=== PATIENT | female | born 1945 | race Caucasian/White ===

== ENCOUNTER → 2016-03-26 | Outpatient (CLI) | payer MEDICARE, BC ==
[~2016-03-26] MED LIST: ALENDRONATE SOD70 MG; ALEVE 220MG220 MG PO; ASPIRIN E.C. 8181 MG PO; CALCIUM 500500 M2 PO; CARDIZEM CD 12120 MG PO; ELIQUIS5 MG PO; FIBER TABLETS1 TAB PO; FOSAMAX PO; GABAPENTIN300 MG; IRON65 MG PO; LEVOTHYROXIN0.112 M1; LEVOTHYROXIN0.125 M1 PO; LEVOTHYROXINE0.1 MG PO; LORTAB 5/500 501 TAB PO; LOTRISONE15 GM TP; MULTI VITAMINS1 TAB PO; RANITIDINE150 MG; SIMVASTATIN20 MG; STOOL SOFTENER100 M1 PO; VITAMIN D3400 IU PO; ZOCOR20 MG PO
== END ==
LOC: RAD 14:20
DX: Z13.820 Encounter for screening for osteoporosis (principal); M81.0 Age-related osteoporosis without current pathological fracture

== ENCOUNTER → 2016-09-08 | Outpatient (CLI) | payer MEDICARE, BC ==
[2014-07-28 06:23] VITALS: BP 151/75
== END ==
LOC: RAD 09:26
DX: M25.569 Pain in unspecified knee (principal); M17.12 Unilateral primary osteoarthritis, left knee; M17.11 Unilateral primary osteoarthritis, right knee; M11.262 Other chondrocalcinosis, left knee; M11.261 Other chondrocalcinosis, right knee

== ENCOUNTER → 2017-01-20 | Outpatient (CLI) | payer MEDICARE, BC ==
[2014-07-28 06:23] VITALS: BP 151/75
[2017-01-20 15:09] LABS: HEMATOCRIT 44.4 % (37.0-47.0); HEMOGLOBIN 14.7 g/dL (12.5-16.0); MEAN PLATELET VOLUME 10.9 fl (7.4-10.4); RED BLOOD COUNT 4.75 M/mm3 (4.10-5.30); RED CELL DISTRIBUTION WIDTH 13.3 % (11.5-14.5); WHITE BLOOD COUNT 9.1 K/mm3 (4.8-10.8)
[2017-01-20 15:22] LABS: ALBUMIN 4.1 g/dL (3.5-5.0); BUN/CREATININE RATIO 14.3 (6.0-26.0); CALCIUM 10.3 mg/dL (8.4-10.2); POTASSIUM 4.5 mmol/L (3.6-5.0); TOTAL BILIRUBIN 0.5 mg/dL (0.2-1.3); TOTAL PROTEIN 7.4 g/dL (6.3-8.2)
== END ==
LOC: LAB 14:44
PROVIDERS: Family Medicine
DX: I48.2 Chronic atrial fibrillation (principal); E78.2 Mixed hyperlipidemia; E03.4 Atrophy of thyroid (acquired)

== ENCOUNTER → 2017-02-03 | Outpatient (CLI) | payer MEDICARE, BC ==
[2014-07-28 06:23] VITALS: BP 151/75
== END ==
LOC: MAMMO 09:46
DX: Z12.31 Encounter for screening mammogram for malignant neoplasm of breast (principal)
CPT/HCPCS: G0202

== ENCOUNTER → 2017-07-04 | Outpatient (CLI) | payer MEDICARE, BC ==
[~2017-07-04] VITALS: Ht 160 cm; Wt 104.1 kg
[2017-07-04 12:40] VITALS: BP 169/77
[2017-07-04 13:06] LABS: EOS # 0.2 (0.04-0.40); EOS % 2.7 % (1.0-5.0); HEMATOCRIT 44.4 % (37.0-47.0); HEMOGLOBIN 14.6 g/dL (12.5-16.0); MEAN CELL VOLUME 93 fl (78-100); MEAN CORPUSCULAR HEMOGLOBIN 31 pg (27-31); MEAN CORPUSCULAR HGB CONC 33 g/dL (33-37); MEAN PLATELET VOLUME 10.9 fl (7.4-10.4); MONO # 0.8 (0.20-0.80); PLATELET COUNT 248 K/mm3 (130-400); RED BLOOD COUNT 4.76 M/mm3 (4.10-5.30); RED CELL DISTRIBUTION WIDTH 13.7 % (11.5-14.5)
[2017-07-04 13:12] LABS: BUN/CREATININE RATIO 14.3 (6.0-26.0); CALCIUM 9.8 mg/dL (8.4-10.2); POTASSIUM 4.3 mmol/L (3.6-5.0)
[2017-07-04 13:46] VITALS: BP 171/93
[2017-07-04 13:49] LABS: URINE APPEARANCE CLEAR; URINE BILIRUBIN NEGATIVE (NEGATIVE); URINE BLOOD NEGATIVE (NEGATIVE); URINE COLOR STRAW; URINE GLUCOSE NEGATIVE (NEGATIVE); URINE KETONE NEGATIVE (NEGATIVE); URINE LEUKOCYTE ESTERASE TRACE (NEGATIVE); URINE NITRATE NEGATIVE (NEGATIVE); URINE PROTEIN(semi-quant) NEGATIVE (NEGATIVE); URINE UROBILINOGEN NORMAL (NORMAL)
== END ==
LOC: AMSURD 11:20
PROVIDERS: Family Medicine
DX: I95.1 Orthostatic hypotension (principal); R42 Dizziness and giddiness
CPT/HCPCS: J7030

== ENCOUNTER → 2018-02-01 | Outpatient (CLI) | payer MEDICARE, BC ==
[2017-07-04 13:46] VITALS: BP 171/93
== END ==
LOC: RAD 13:58
DX: R05 Cough (principal)

== ENCOUNTER → 2018-02-09 | Outpatient (CLI) | payer MEDICARE, BC ==
[2017-07-04 13:46] VITALS: BP 171/93
== END ==
LOC: MAMMO 08:37
DX: Z12.31 Encounter for screening mammogram for malignant neoplasm of breast (principal)

== ENCOUNTER → 2018-02-09 | Outpatient (CLI) | payer MEDICARE, BC ==
[2017-07-04 13:46] VITALS: BP 171/93
[2018-02-09 09:22] LABS: EOS # 0.3 (0.04-0.40); EOS % 2.9 % (1.0-5.0); HEMATOCRIT 49.3 % (37.0-47.0); HEMOGLOBIN 16.1 g/dL (12.5-16.0); LYMPH# 1.5 (1.50-4.00); MEAN CELL VOLUME 93 fl (78-100); MEAN CORPUSCULAR HEMOGLOBIN 31 pg (27-31); MEAN CORPUSCULAR HGB CONC 33 g/dL (33-37); MEAN PLATELET VOLUME 10.5 fl (7.4-10.4); MONO # 0.9 (0.20-0.80); NEU # 7.8 (1.40-6.50); PLATELET COUNT 347 K/mm3 (130-400); RED BLOOD COUNT 5.28 M/mm3 (4.10-5.30); RED CELL DISTRIBUTION WIDTH 13.7 % (11.5-14.5); WHITE BLOOD COUNT 10.6 K/mm3 (4.8-10.8)
[2018-02-09 09:54] LABS: ALBUMIN 4.3 g/dL (3.5-5.0); CALCIUM 9.1 mg/dL (8.4-10.2); POTASSIUM 4.6 mmol/L (3.6-5.0); TOTAL BILIRUBIN 0.5 mg/dL (0.2-1.3); TOTAL PROTEIN 7.3 g/dL (6.3-8.2)
== END ==
LOC: LAB 08:40
PROVIDERS: Family Medicine
DX: Z01.419 Encounter for gynecological examination (general) (routine) without abnormal findings (principal); E03.9 Hypothyroidism, unspecified; M81.0 Age-related osteoporosis without current pathological fracture

== ENCOUNTER → 2018-05-11 | Outpatient (CLI) | payer MEDICARE, BC ==
[2017-07-04 13:46] VITALS: BP 171/93
[2018-05-11 16:09] LABS: HEMATOCRIT 43.6 % (37.0-47.0); HEMOGLOBIN 14.2 g/dL (12.5-16.0); MEAN CELL VOLUME 91 fl (78-100); MEAN CORPUSCULAR HEMOGLOBIN 30 pg (27-31); MEAN CORPUSCULAR HGB CONC 33 g/dL (33-37); MEAN PLATELET VOLUME 10.9 fl (7.4-10.4); PLATELET COUNT 221 K/mm3 (130-400); RED BLOOD COUNT 4.77 M/mm3 (4.10-5.30); WHITE BLOOD COUNT 11.7 K/mm3 (4.8-10.8)
[2018-05-11 16:56] LABS: ALBUMIN 4.3 g/dL (3.5-5.0); POTASSIUM 3.4 mmol/L (3.6-5.0); TOTAL BILIRUBIN 0.8 mg/dL (0.2-1.3); TOTAL PROTEIN 7.3 g/dL (6.3-8.2)
[2018-05-11 17:01] LABS: LYMPHOCYTE 6 % (20-51); MONOCYTE 6 % (3-10); NEUTROPHILS 88 % (42-75)
== END ==
LOC: LAB 15:48
PROVIDERS: Family Medicine
DX: R53.83 Other fatigue (principal); R09.81 Nasal congestion; L03.90 Cellulitis, unspecified

== ENCOUNTER → 2018-05-12 | Outpatient (CLI) | payer MEDICARE, BC ==
[2017-07-04 13:46] VITALS: BP 171/93
[2018-05-13 07:55] LABS: CALCIUM, IONIZED, SERUM 2.25 mmol/L (1.19-1.41)
== END ==
LOC: LAB 08:49
PROVIDERS: Family Medicine
DX: E83.52 Hypercalcemia (principal)

== ENCOUNTER → 2018-05-13 | Outpatient (CLI) | payer MEDICARE, BC ==
[2017-07-04 13:46] VITALS: BP 171/93
== END ==
LOC: LAB 09:39
DX: E83.52 Hypercalcemia (principal)

== ENCOUNTER → 2018-05-26 | Outpatient (CLI) | payer MEDICARE, BC ==
[2017-07-04 13:46] VITALS: BP 171/93
[2018-05-26 16:35] LABS: PH-URINE 6.5 (5.0 - 8.0); URINE APPEARANCE CLEAR; URINE BILIRUBIN NEGATIVE (NEGATIVE); URINE COLOR YELLOW; URINE GLUCOSE NEGATIVE (NEGATIVE); URINE KETONE NEGATIVE (NEGATIVE); URINE NITRATE NEGATIVE (NEGATIVE); URINE PROTEIN(semi-quant) TRACE mg/dL (NEGATIVE); URINE UROBILINOGEN NORMAL (NORMAL)
[2018-05-26 16:36] LABS: URINE BLOOD TRACE (NEGATIVE); URINE LEUKOCYTE ESTERASE TRACE (NEGATIVE)
== END ==
LOC: LAB 14:10
PROVIDERS: Family Medicine
DX: N39.0 Urinary tract infection, site not specified (principal)

== ENCOUNTER 2018-07-22 09:23 | Emergency (ER) | payer MEDICARE, BC ==
[~2018-07-22] VITALS: Wt 108.5 kg
[2018-07-22] MEDS ORDERED: ZYRTEC ALLERGY10 MG PO ×2 (09:41→15:41)
[2018-07-22] MEDS ORDERED: OMEPRAZOLE40 MG PO ×2 (09:42→09:43)
[2018-07-22] MEDS ORDERED: LEVOTHYROXINE125 MCG PO (09:43)
[2018-07-22] MEDS ORDERED: DILTIAZEM 24HR120 M2 PO (09:43)
[2018-07-22] MEDS ORDERED: ELIQUIS2.5 MG PO (09:44)
[2018-07-22 10:00] LABS: HEMATOCRIT 42.1 % (37.0-47.0); HEMOGLOBIN 13.6 g/dL (12.5-16.0); MEAN CELL VOLUME 92 fl (78-100); MEAN CORPUSCULAR HEMOGLOBIN 30 pg (27-31); MEAN CORPUSCULAR HGB CONC 32 g/dL (33-37); MEAN PLATELET VOLUME 10.8 fl (7.4-10.4); PLATELET COUNT 309 K/mm3 (130-400); RED BLOOD COUNT 4.57 M/mm3 (4.10-5.30); RED CELL DISTRIBUTION WIDTH 14.9 % (11.5-14.5); WHITE BLOOD COUNT 19.1 K/mm3 (4.8-10.8)
[2018-07-22 10:18] LABS: ALBUMIN 4.1 g/dL (3.4-4.8); CALCIUM 9.9 mg/dL (8.4-10.2); POTASSIUM 4.3 mmol/L (3.5-5.1); TOTAL BILIRUBIN 0.9 mg/dL (0.2-1.2); TOTAL PROTEIN 7.6 g/dL (6.2-8.1)
[2018-07-22 10:21] LABS: LYMPHOCYTE 1 % (20-51); MONOCYTE 10 % (3-10); NEUTROPHILS 89 % (42-75)
[2018-07-22 10:26] LABS: PROTHROMBIN TIME 10.8 SECONDS (9.0-12.0)
[2018-07-22 10:58] LABS: URINE APPEARANCE HAZY; URINE COLOR YELLOW
[2018-07-22 10:59] LABS: URINE BILIRUBIN NEGATIVE (NEGATIVE); URINE BLOOD 50 ery/uL (NEGATIVE); URINE GLUCOSE NEGATIVE (NEGATIVE); URINE KETONE NEGATIVE (NEGATIVE); URINE LEUKOCYTE ESTERASE NEGATIVE (NEGATIVE); URINE MUCUS PRESENT (NOT PRESENT); URINE NITRATE NEGATIVE (NEGATIVE); URINE PROTEIN(semi-quant) 1+ mg/dL (NEGATIVE); URINE UROBILINOGEN NORMAL (NORMAL)
[2018-07-22 11:09] LABS: ERYTHROCYTE SEDIMENTATION RATE 42 mm/hr (0-30)
[2018-07-22 13:53] VITALS: BP 149/69
[2018-07-22] MEDS ORDERED: DILTIAZEM 12HR120 MG PO (15:42)
[2018-07-22] MEDS ORDERED: FOSAMAX 70MG TA70 MG PO (15:43)
[2018-07-23 22:06] LABS: ANA SCREEN with REFLEX Negative (Negative)
[2018-07-24 15:53] LABS: TB LYME DISEASE SEROLOGY Negative (Negative)
[2018-07-25 14:42] LABS: TB A PHAGOCYTOPHILUM IgG <1:64 titer (<1:64)
[2018-07-25 14:44] LABS: TB BABESIA MICROTI IgG <1:64 titer (<1:64)
== END 2018-07-22 13:43 | disposition other institution (70) ==
LOC: ED 09:23
PROVIDERS: Nurse Practitioner Primary Care
DX: R21 Rash and other nonspecific skin eruption (principal); R50.9 Fever, unspecified; R52 Pain, unspecified; I48.91 Unspecified atrial fibrillation; E78.5 Hyperlipidemia, unspecified; I10 Essential (primary) hypertension; E03.9 Hypothyroidism, unspecified; E66.9 Obesity, unspecified; Z79.01 Long term (current) use of anticoagulants; Z86.79 Personal history of other diseases of the circulatory system; Z98.51 Tubal ligation status
CPT/HCPCS: J1885; J2270; J2405; J7030; Q9967

== ENCOUNTER → 2018-07-30 | Outpatient (CLI) | payer MEDICARE, BC ==
[~2018-07-30] VITALS: Ht 160 cm; Wt 109.6 kg
[~2018-07-30] MED LIST changes: +COLACE100 M1 PO; +DILTIAZEM 12HR120 MG PO; +DILTIAZEM 24HR120 M2 PO; +ELIQUIS2.5 MG PO; +FOSAMAX 70MG TA70 MG PO; +LEVOTHYROXINE125 MCG PO; +MIRALAX17 GM PO; +OMEPRAZOLE40 MG PO; +ZYRTEC ALLERGY10 MG PO
[2018-07-30 11:11] VITALS: BP 180/110
== END ==
LOC: AMSURD 09:49
DX: K59.00 Constipation, unspecified (principal)

== ENCOUNTER → 2018-10-19 | Outpatient (CLI) | payer MEDICARE, BC ==
[2018-07-30 11:11] VITALS: BP 180/110
== END ==
LOC: RAD 09:50 → MAMMO 10:00 → RAD 10:00
DX: Z13.820 Encounter for screening for osteoporosis (principal); M85.851 Other specified disorders of bone density and structure, right thigh; M81.0 Age-related osteoporosis without current pathological fracture

== ENCOUNTER → 2018-12-06 | Outpatient (CLI) | payer MEDICARE, BC ==
[2018-07-30 11:11] VITALS: BP 180/110
== END ==
LOC: VAS 16:53 → RAD 17:00
DX: R06.00 Dyspnea, unspecified (principal)

== ENCOUNTER → 2019-02-22 | Outpatient (CLI) | payer MEDICARE, BC ==
[2018-07-30 11:11] VITALS: BP 180/110
== END ==
LOC: MAMMO 10:35
DX: Z12.31 Encounter for screening mammogram for malignant neoplasm of breast (principal)

== ENCOUNTER → 2019-05-25 | Outpatient (CLI) | payer MEDICARE, BC ==
[2018-07-30 11:11] VITALS: BP 180/110
[2019-05-25 09:19] LABS: HEMATOCRIT 40.6 % (37.0-47.0); HEMOGLOBIN 13.2 g/dL (12.5-16.0); MEAN CELL VOLUME 93 fl (78-100); MEAN CORPUSCULAR HEMOGLOBIN 30 pg (27-31); MEAN CORPUSCULAR HGB CONC 33 g/dL (33-37); MEAN PLATELET VOLUME 10.2 fl (7.4-10.4); PLATELET COUNT 303 K/mm3 (130-400); RED BLOOD COUNT 4.35 M/mm3 (4.10-5.30); RED CELL DISTRIBUTION WIDTH 12.8 % (11.5-14.5); WHITE BLOOD COUNT 9.3 K/mm3 (4.8-10.8)
[2019-05-25 09:33] LABS: ALBUMIN 4.3 g/dL (3.4-4.8); POTASSIUM 4.1 mmol/L (3.5-5.1)
[2019-05-25 09:34] LABS: CALCIUM 9.9 mg/dL (8.3-10.5)
[2019-05-25 09:36] LABS: TOTAL PROTEIN 7.3 g/dL (6.2-8.1)
[2019-05-25 09:37] LABS: TOTAL BILIRUBIN 0.6 mg/dL (0.2-1.2)
[2019-05-25 10:35] LABS: LYMPHOCYTE 6 % (20-51); MONOCYTE 2 % (3-10); NEUTROPHILS 89 % (42-75)
[2019-05-25 11:09] LABS: PH-URINE 6.5 (5.0 - 8.0); URINE APPEARANCE CLEAR; URINE COLOR YELLOW; URINE PROTEIN(semi-quant) TRACE mg/dL (NEGATIVE)
[2019-05-25 11:10] LABS: URINE BILIRUBIN NEGATIVE (NEGATIVE); URINE BLOOD NEGATIVE (NEGATIVE); URINE GLUCOSE NEGATIVE (NEGATIVE); URINE KETONE NEGATIVE (NEGATIVE); URINE LEUKOCYTE ESTERASE NEGATIVE (NEGATIVE); URINE MUCUS PRESENT (NOT PRESENT); URINE NITRATE NEGATIVE (NEGATIVE); URINE UROBILINOGEN NORMAL (NORMAL)
== END ==
LOC: LAB 08:57
PROVIDERS: Family Medicine
DX: Z01.818 Encounter for other preprocedural examination (principal); R73.01 Impaired fasting glucose

== ENCOUNTER → 2019-05-27 | Outpatient (CLI) | payer MEDICARE, BC ==
[2018-07-30 11:11] VITALS: BP 180/110
== END ==
LOC: RAD 08:54
DX: Z01.818 Encounter for other preprocedural examination (principal)

== ENCOUNTER → 2019-09-06 | Outpatient (CLI) | payer MEDICARE, BC ==
[2018-07-30 11:11] VITALS: BP 180/110
[2019-09-06 10:25] LABS: HEMATOCRIT 43.7 % (37.0-47.0); HEMOGLOBIN 14.2 g/dL (12.5-16.0); MEAN CELL VOLUME 91 fl (78-100); MEAN CORPUSCULAR HEMOGLOBIN 30 pg (27-31); MEAN CORPUSCULAR HGB CONC 33 g/dL (33-37); MEAN PLATELET VOLUME 10.4 fl (7.4-10.4); PLATELET COUNT 322 K/mm3 (130-400); RED BLOOD COUNT 4.78 M/mm3 (4.10-5.30); RED CELL DISTRIBUTION WIDTH 14.4 % (11.5-14.5); WHITE BLOOD COUNT 8.3 K/mm3 (4.8-10.8)
[2019-09-06 10:30] LABS: ALBUMIN 4.2 g/dL (3.4-4.8); POTASSIUM 4.2 mmol/L (3.5-5.1)
[2019-09-06 10:33] LABS: CALCIUM 8.9 mg/dL (8.3-10.5); TOTAL BILIRUBIN 0.5 mg/dL (0.2-1.2); TOTAL PROTEIN 7.1 g/dL (6.2-8.1)
[2019-09-06 11:17] LABS: LYMPHOCYTE 12 % (20-51); MONOCYTE 8 % (3-10); NEUTROPHILS 79 % (42-75)
[2019-09-06 13:25] LABS: URINE APPEARANCE CLEAR; URINE BILIRUBIN NEGATIVE (NEGATIVE); URINE BLOOD NEGATIVE (NEGATIVE); URINE COLOR YELLOW; URINE GLUCOSE NEGATIVE (NEGATIVE); URINE KETONE NEGATIVE (NEGATIVE); URINE LEUKOCYTE ESTERASE 1+ (NEGATIVE); URINE NITRATE NEGATIVE (NEGATIVE); URINE PROTEIN(semi-quant) TRACE mg/dL (NEGATIVE); URINE UROBILINOGEN NORMAL (NORMAL)
== END ==
LOC: LAB 09:49
PROVIDERS: Family Medicine
DX: Z01.818 Encounter for other preprocedural examination (principal)

== ENCOUNTER → 2019-09-08 | Outpatient (CLI) | payer MEDICARE, BC ==
[2018-07-30 11:11] VITALS: BP 180/110
== END ==
LOC: PT 13:56
DX: M17.12 Unilateral primary osteoarthritis, left knee (principal); I10 Essential (primary) hypertension

== ENCOUNTER → 2019-11-07 13:00 | Outpatient (RCR) | payer MEDICARE, BC ==
[2018-07-30 11:11] VITALS: BP 180/110
== END | disposition home or self-care (01) ==
LOC: PT 09-19 10:00
DX: M17.12 Unilateral primary osteoarthritis, left knee (principal); I10 Essential (primary) hypertension; Z96.652 Presence of left artificial knee joint

== ENCOUNTER → 2019-11-24 | Outpatient (CLI) | payer MEDICARE, BC ==
[2018-07-30 11:11] VITALS: BP 180/110
== END ==
LOC: LAB 09:46
DX: E03.9 Hypothyroidism, unspecified (principal)

== ENCOUNTER → 2020-02-08 | Outpatient (CLI) | payer MEDICARE, BC ==
[2020-01-16 10:56] VITALS: BP 158/86
[~2020-02-08] MED LIST changes: +HYDROCHLOROTHIA1 T14
[2020-02-09 04:47] LABS: T3 FREE 2.8 pg/mL (())
== END ==
LOC: LAB 11:10
PROVIDERS: Family Medicine
DX: E03.4 Atrophy of thyroid (acquired) (principal)

== ENCOUNTER → 2020-02-22 | Outpatient (CLI) | payer MEDICARE, BC ==
[2020-01-16 10:56] VITALS: BP 158/86
== END ==
LOC: RAD 12:52 → MAMMO 13:45 → RAD 13:45
DX: M81.0 Age-related osteoporosis without current pathological fracture (principal)

== ENCOUNTER → 2020-02-22 | Outpatient (CLI) | payer MEDICARE, BC ==
[2020-01-16 10:56] VITALS: BP 158/86
== END ==
LOC: MAMMO 12:51
DX: Z12.31 Encounter for screening mammogram for malignant neoplasm of breast (principal)

== ENCOUNTER → 2020-05-25 | Outpatient (CLI) | payer MEDICARE, BC ==
[2020-01-16 10:56] VITALS: BP 158/86
[~2020-05-25] MED LIST changes: +ADULT LOW DOSE81 MG PO; +AMBIEN5 M1 PO; +FLOVENT HFA12 G1 IH; +PLETAL 100MG T100 MG PO; +PROAIR HFA0.09 MG/AC IH; +SIMVASTATIN20 M1 PO; +TORSEMIDE20 M1 PO; +TRAMADOL 50 MG TAB PO; +ULTRAM50 M1 PO
[2020-05-25 10:06] LABS: ALBUMIN 4.2 g/dL (3.4-4.8); POTASSIUM 4.1 mmol/L (3.5-5.1)
[2020-05-25 10:07] LABS: CALCIUM 9.4 mg/dL (8.3-10.5)
[2020-05-25 10:08] LABS: TOTAL PROTEIN 7.4 g/dL (6.2-8.1)
[2020-05-25 10:10] LABS: TOTAL BILIRUBIN 0.6 mg/dL (0.2-1.2)
[2020-05-25 10:20] LABS: EOS # 0.2 (0.04-0.40); EOS % 3.7 % (1.0-5.0); HEMATOCRIT 42.5 % (37.0-47.0); HEMOGLOBIN 13.8 g/dL (12.5-16.0); LYMPH# 0.8 (1.50-4.00); MEAN CELL VOLUME 91 fl (78-100); MEAN CORPUSCULAR HEMOGLOBIN 30 pg (27-31); MEAN CORPUSCULAR HGB CONC 33 g/dL (33-37); MEAN PLATELET VOLUME 10.8 fl (7.4-10.4); MONO # 0.6 (0.20-0.80); NEU # 4.8 (1.40-6.50); PLATELET COUNT 272 K/mm3 (130-400); RED BLOOD COUNT 4.68 M/mm3 (4.10-5.30); WHITE BLOOD COUNT 6.6 K/mm3 (4.8-10.8)
== END ==
LOC: LAB 09:23
PROVIDERS: Family Medicine
DX: Z00.00 Encounter for general adult medical examination without abnormal findings (principal); E78.5 Hyperlipidemia, unspecified; E55.9 Vitamin D deficiency, unspecified

== ENCOUNTER → 2020-11-27 | Outpatient (CLI) | payer MEDICARE, BC ==
[2020-11-27 09:19] LABS: ALBUMIN 4.1 g/dL (3.4-4.8); POTASSIUM 4.2 mmol/L (3.5-5.1)
[2020-11-27 09:20] LABS: CALCIUM 9.8 mg/dL (8.3-10.5)
[2020-11-27 09:21] LABS: TOTAL PROTEIN 7.4 g/dL (6.2-8.1)
[2020-11-27 09:23] LABS: TOTAL BILIRUBIN 0.6 mg/dL (0.2-1.2)
== END ==
LOC: LAB 08:47
PROVIDERS: Family Medicine
DX: E03.4 Atrophy of thyroid (acquired) (principal); E55.9 Vitamin D deficiency, unspecified; I10 Essential (primary) hypertension

== ENCOUNTER 2021-01-23 12:20 | Emergency (ER) | payer OTHER, MEDICARE, BC ==
[~2021-01-23] VITALS: Ht 160 cm; Wt 110.7 kg
[~2021-01-23 12:20] MED LIST changes: -ADULT LOW DOSE81 MG PO; -AMBIEN5 M1 PO; -FLOVENT HFA12 G1 IH; -PLETAL 100MG T100 MG PO; -PROAIR HFA0.09 MG/AC IH; -SIMVASTATIN20 M1 PO; -TORSEMIDE20 M1 PO; -TRAMADOL 50 MG TAB PO; -ULTRAM50 M1 PO
[2021-01-23 13:15] LABS: BASO # 0.02 K/mm3 (0.02-0.10); EOS # 0.22 K/mm3 (0.04-0.40); EOS % 2.1 % (1.0-5.0); HEMATOCRIT 40.4 % (37.0-47.0); HEMOGLOBIN 13.2 g/dL (12.5-16.0); LYMPH# 0.78 K/mm3 (1.50-4.00); MEAN CELL VOLUME 92 fl (78-100); MEAN CORPUSCULAR HEMOGLOBIN 30 pg (27-31); MEAN CORPUSCULAR HGB CONC 33 g/dL (33-37); MONO # 0.69 K/mm3 (0.20-0.80); NEU # 8.52 K/mm3 (1.40-6.50); PLATELET COUNT 232 K/mm3 (130-400); RED BLOOD COUNT 4.38 M/mm3 (4.10-5.30); RED CELL DISTRIBUTION WIDTH 13.3 % (11.5-14.5); WHITE BLOOD COUNT 10.3 K/mm3 (4.8-10.8)
[2021-01-23] MEDS ORDERED: TRAMADOL 50 MG TAB PO (13:15)
[2021-01-23] MEDS ORDERED: ELIQUIS2.5 MG PO (13:16)
[2021-01-23] MEDS ORDERED: DILTIAZEM 24HR120 M2 PO (13:17)
[2021-01-23] MEDS ORDERED: PLETAL 100MG T100 MG PO (13:17)
[2021-01-23] MEDS ORDERED: SIMVASTATIN20 M1 PO (13:17)
[2021-01-23 13:19] LABS: ALBUMIN 4.1 g/dL (3.4-4.8); SODIUM 133 mmol/L (136-145)
[2021-01-23] MEDS ORDERED: AMBIEN5 M1 PO (13:19)
[2021-01-23 13:20] LABS: CALCIUM 9.9 mg/dL (8.3-10.5)
[2021-01-23] MEDS ORDERED: FLOVENT HFA12 G1 IH (13:20)
[2021-01-23] MEDS ORDERED: ADULT LOW DOSE81 MG PO (13:20)
[2021-01-23] MEDS ORDERED: PROAIR HFA0.09 MG/AC IH (13:20)
[2021-01-23] MEDS ORDERED: TORSEMIDE20 M1 PO (13:21)
[2021-01-23 13:22] LABS: GLUCOSE 109 mg/dL (65-105); TOTAL PROTEIN 7.4 g/dL (6.2-8.1)
[2021-01-23 13:23] LABS: CARBON DIOXIDE 22 mmol/L (23-31); TOTAL BILIRUBIN 0.7 mg/dL (0.2-1.2)
[2021-01-23 13:27] LABS: AST-SGOT 24 U/L (5-34)
[2021-01-23 13:28] LABS: ALT/SGPT 21 U/L (0-55)
[2021-01-23 13:33] LABS: URINE APPEARANCE CLEAR; URINE BILIRUBIN NEGATIVE (NEGATIVE); URINE BLOOD TRACE (NEGATIVE); URINE COLOR YELLOW; URINE GLUCOSE NEGATIVE (NEGATIVE); URINE KETONE NEGATIVE (NEGATIVE); URINE NITRATE NEGATIVE (NEGATIVE); URINE PROTEIN(semi-quant) TRACE mg/dL (NEGATIVE); URINE UROBILINOGEN NORMAL (NORMAL)
[2021-01-23 13:35] LABS: URINE LEUKOCYTE ESTERASE NEGATIVE (NEGATIVE)
[2021-01-23 13:36] LABS: URINE MUCUS PRESENT (NOT PRESENT)
[2021-01-23 13:36] LABS: TROPONIN-I < 0.03 ng/mL (<0.030)
[2021-01-23 13:41] LABS: PROTHROMBIN TIME 11.3 SECONDS (9.0-12.0)
[2021-01-23] MEDS ORDERED: ULTRAM50 M1 PO (15:44)
[2021-01-23 16:17] VITALS: BP 126/68
== END 2021-01-23 16:18 | disposition home or self-care (01) ==
LOC: ED 12:20
PROVIDERS: Physician Assistant
DX: S20.219A Contusion of unspecified front wall of thorax, initial encounter (principal); S80.11XA Contusion of right lower leg, initial encounter; K21.9 Gastro-esophageal reflux disease without esophagitis; I48.20 Chronic atrial fibrillation, unspecified; I10 Essential (primary) hypertension; E66.01 Morbid (severe) obesity due to excess calories; E78.2 Mixed hyperlipidemia; Z87.891 Personal history of nicotine dependence; Z68.41 Body mass index [BMI] 40.0-44.9, adult; Z79.01 Long term (current) use of anticoagulants; Z79.899 Other long term (current) drug therapy; V49.40XA Driver injured in collision with unspecified motor vehicles in traffic accident, initial encounter
CPT/HCPCS: Q9967

== ENCOUNTER → 2021-05-09 | Outpatient (CLI) | payer MEDICARE, BC ==
[~2021-05-09] MED LIST changes: +ADULT LOW DOSE81 MG PO; +AMBIEN5 M1 PO; +FLOVENT HFA12 G1 IH; +PLETAL 100MG T100 MG PO; +PROAIR HFA0.09 MG/AC IH; +SIMVASTATIN20 M1 PO; +TORSEMIDE20 M1 PO; +TRAMADOL 50 MG TAB PO; +ULTRAM50 M1 PO; +VITAMIN D310 MC3
== END ==
LOC: LAB 11:37
DX: S81.801D Unspecified open wound, right lower leg, subsequent encounter (principal); L03.119 Cellulitis of unspecified part of limb

== ENCOUNTER 2021-05-11 10:18 | Emergency (ER) | payer MEDICARE, BC ==
[~2021-05-11 10:18] MED LIST changes: -VITAMIN D310 MC3
[2021-05-11 10:29] VITALS: BP 138/74
[2021-05-11] MEDS ORDERED: VITAMIN D310 MC3 (11:24)
== END 2021-05-11 11:50 | disposition home or self-care (01) ==
LOC: ED 10:18
DX: I83.892 Varicose veins of left lower extremity with other complications (principal); L97.919 Non-pressure chronic ulcer of unspecified part of right lower leg with unspecified severity; I48.91 Unspecified atrial fibrillation; Z79.01 Long term (current) use of anticoagulants
CPT/HCPCS: 19899

== ENCOUNTER → 2021-05-28 | Outpatient (CLI) | payer MEDICARE, BC ==
[~2021-05-28] MED LIST changes: +VITAMIN D310 MC3
[2021-05-28 09:55] LABS: BASO # 0.02 K/mm3 (0.02-0.10); EOS % 2.8 % (1.0-5.0); HEMATOCRIT 39.9 % (37.0-47.0); HEMOGLOBIN 12.9 g/dL (12.5-16.0); LYMPH# 0.96 K/mm3 (1.50-4.00); MEAN CELL VOLUME 91 fl (78-100); MEAN CORPUSCULAR HEMOGLOBIN 29 pg (27-31); MEAN CORPUSCULAR HGB CONC 32 g/dL (33-37); MONO # 0.71 K/mm3 (0.20-0.80); NEU # 5.37 K/mm3 (1.40-6.50); PLATELET COUNT 271 K/mm3 (130-400); RED BLOOD COUNT 4.41 M/mm3 (4.10-5.30); RED CELL DISTRIBUTION WIDTH 13.7 % (11.5-14.5); WHITE BLOOD COUNT 7.3 K/mm3 (4.8-10.8)
[2021-05-28 10:03] LABS: ALBUMIN 4.1 g/dL (3.4-4.8); POTASSIUM 3.8 mmol/L (3.5-5.1)
[2021-05-28 10:04] LABS: CALCIUM 9.7 mg/dL (8.3-10.5)
[2021-05-28 10:06] LABS: TOTAL PROTEIN 7.3 g/dL (6.2-8.1)
[2021-05-28 10:08] LABS: TOTAL BILIRUBIN 0.5 mg/dL (0.2-1.2)
== END ==
LOC: LAB 09:28
PROVIDERS: Family Medicine
DX: Z00.00 Encounter for general adult medical examination without abnormal findings (principal); E03.4 Atrophy of thyroid (acquired); E78.5 Hyperlipidemia, unspecified; E55.9 Vitamin D deficiency, unspecified

== ENCOUNTER 2021-06-14 00:02 | Inpatient (IN) | payer MEDICARE, BC ==
[~2021-06-14] VITALS: Ht 162.6 cm; Wt 107.9 kg
[2021-06-15 01:00] VITALS: BP 160/86
[2021-06-15 06:09] VITALS: BP 136/72
[2021-06-15 09:44] VITALS: BP 142/68
[2021-06-15 11:53] LABS: CALCIUM 9.2 mg/dL (8.3-10.5)
[2021-06-15 11:55] LABS: BASO # 0.01 K/mm3 (0.02-0.10); HEMATOCRIT 40.4 % (37.0-47.0); HEMOGLOBIN 13.5 g/dL (12.5-16.0); MEAN CELL VOLUME 89 fl (78-100); MEAN CORPUSCULAR HEMOGLOBIN 30 pg (27-31); MEAN CORPUSCULAR HGB CONC 33 g/dL (33-37); MEAN PLATELET VOLUME 10.1 fl (7.4-10.4); NEU # 14.37 K/mm3 (1.40-6.50); PLATELET COUNT 290 K/mm3 (130-400); RED BLOOD COUNT 4.55 M/mm3 (4.10-5.30); RED CELL DISTRIBUTION WIDTH 13.9 % (11.5-14.5); WHITE BLOOD COUNT 15.7 K/mm3 (4.8-10.8)
[2021-06-15 13:52] VITALS: BP 121/72
[2021-06-15 18:28] VITALS: BP 135/80
[2021-06-15 23:02] VITALS: BP 120/85
[2021-06-16 06:27] VITALS: BP 120/85
[2021-06-16 10:01] VITALS: BP 121/79
[2021-06-16] MEDS ORDERED: DOXYCYCLINE MO100 M3 PO (13:37)
[2021-06-16] MEDS ORDERED: PREDNISONE20 MG PO (13:40)
[2021-06-16 14:02] VITALS: BP 130/75
== END 2021-06-16 14:34 | disposition home or self-care (01) | DRG 554 ==
LOC: MED/SURG 23:38
PROVIDERS: ADMIT Family Medicine
DX: M12.39 Palindromic rheumatism, multiple sites (principal); Z68.41 Body mass index [BMI] 40.0-44.9, adult; I83.219 Varicose veins of right lower extremity with both ulcer of unspecified site and inflammation; L97.919 Non-pressure chronic ulcer of unspecified part of right lower leg with unspecified severity; M13.0 Polyarthritis, unspecified; I10 Essential (primary) hypertension; M81.0 Age-related osteoporosis without current pathological fracture; I48.91 Unspecified atrial fibrillation; Z20.822 Contact with and (suspected) exposure to COVID-19; M48.00 Spinal stenosis, site unspecified; E78.5 Hyperlipidemia, unspecified; E66.01 Morbid (severe) obesity due to excess calories
CPT/HCPCS: J0696; J2920; J7050; J7512

== ENCOUNTER 2021-06-14 20:27 | Emergency (ER) | payer MEDICARE, BC ==
[~2021-06-14] VITALS: Ht 160 cm; Wt 112.6 kg
[2021-06-14 22:06] LABS: BASO # 0.01 K/mm3 (0.02-0.10); EOS # 0.01 K/mm3 (0.04-0.40); EOS % 0.1 % (1.0-5.0); HEMATOCRIT 41.2 % (37.0-47.0); HEMOGLOBIN 13.8 g/dL (12.5-16.0); LYMPH# 0.84 K/mm3 (1.50-4.00); MEAN CELL VOLUME 89 fl (78-100); MEAN CORPUSCULAR HEMOGLOBIN 30 pg (27-31); MEAN CORPUSCULAR HGB CONC 34 g/dL (33-37); MEAN PLATELET VOLUME 10.1 fl (7.4-10.4); MONO # 1.45 K/mm3 (0.20-0.80); NEU # 13.54 K/mm3 (1.40-6.50); PLATELET COUNT 301 K/mm3 (130-400); RED BLOOD COUNT 4.62 M/mm3 (4.10-5.30); WHITE BLOOD COUNT 15.9 K/mm3 (4.8-10.8)
[2021-06-14 22:09] LABS: ALBUMIN 3.8 g/dL (3.4-4.8); POTASSIUM 3.9 mmol/L (3.5-5.1)
[2021-06-14 22:10] LABS: CALCIUM 9.4 mg/dL (8.3-10.5)
[2021-06-14 22:13] LABS: URINE APPEARANCE HAZY; URINE BILIRUBIN NEGATIVE (NEGATIVE); URINE BLOOD 50 ery/uL (NEGATIVE); URINE COLOR DK YELLOW; URINE GLUCOSE NEGATIVE (NEGATIVE); URINE LEUKOCYTE ESTERASE TRACE (NEGATIVE); URINE NITRATE NEGATIVE (NEGATIVE); URINE PROTEIN(semi-quant) TRACE (NEGATIVE); URINE UROBILINOGEN NORMAL (NORMAL)
[2021-06-14 22:14] LABS: URINE MUCUS PRESENT (NOT PRESENT)
[2021-06-14 22:16] LABS: URINE KETONE 2+ (NEGATIVE)
[2021-06-15 00:39] VITALS: BP 160/86
[2021-06-16] MEDS ORDERED: DOXYCYCLINE MO100 M3 PO (13:37)
[2021-06-16] MEDS ORDERED: PREDNISONE20 MG PO (13:40)
[2021-06-24 11:55] LABS: EPSTEIN-BARR VIRUS DNA LOG Detected <2.00 (())
== END 2021-06-15 00:35 | disposition other institution (70) ==
LOC: ED 20:27
PROVIDERS: Family Medicine
DX: L97.912 Non-pressure chronic ulcer of unspecified part of right lower leg with fat layer exposed (principal); I48.91 Unspecified atrial fibrillation; E66.01 Morbid (severe) obesity due to excess calories; M13.0 Polyarthritis, unspecified; I87.2 Venous insufficiency (chronic) (peripheral); Z73.89 Other problems related to life management difficulty; Z68.41 Body mass index [BMI] 40.0-44.9, adult; Z79.01 Long term (current) use of anticoagulants

== ENCOUNTER → 2021-06-24 | Outpatient (CLI) | payer MEDICARE, BC ==
[~2021-06-24] MED LIST changes: +DOXYCYCLINE MO100 M3 PO; +PREDNISONE20 MG PO
[2021-06-24 12:37] LABS: BASO # 0.01 K/mm3 (0.02-0.10); EOS # 0.11 K/mm3 (0.04-0.40); EOS % 0.9 % (1.0-5.0); HEMATOCRIT 45.2 % (37.0-47.0); HEMOGLOBIN 14.7 g/dL (12.5-16.0); LYMPH# 2.05 K/mm3 (1.50-4.00); MEAN CELL VOLUME 90 fl (78-100); MEAN CORPUSCULAR HEMOGLOBIN 29 pg (27-31); MEAN CORPUSCULAR HGB CONC 33 g/dL (33-37); MEAN PLATELET VOLUME 9.3 fl (7.4-10.4); MONO # 0.92 K/mm3 (0.20-0.80); NEU # 8.51 K/mm3 (1.40-6.50); PLATELET COUNT 362 K/mm3 (130-400); RED BLOOD COUNT 5.03 M/mm3 (4.10-5.30); WHITE BLOOD COUNT 11.7 K/mm3 (4.8-10.8)
[2021-06-24 12:44] LABS: ALBUMIN 3.9 g/dL (3.4-4.8)
[2021-06-24 12:45] LABS: POTASSIUM 3.8 mmol/L (3.5-5.1)
[2021-06-24 12:46] LABS: CALCIUM 10.5 mg/dL (8.3-10.5)
[2021-06-24 12:47] LABS: TOTAL PROTEIN 7.1 g/dL (6.2-8.1)
[2021-06-24 12:49] LABS: TOTAL BILIRUBIN 0.6 mg/dL (0.2-1.2)
== END ==
LOC: LAB 12:08
PROVIDERS: Family Medicine
DX: M19.90 Unspecified osteoarthritis, unspecified site (principal); E03.4 Atrophy of thyroid (acquired); I48.20 Chronic atrial fibrillation, unspecified; K21.9 Gastro-esophageal reflux disease without esophagitis; K57.90 Diverticulosis of intestine, part unspecified, without perforation or abscess without bleeding; E83.52 Hypercalcemia; I10 Essential (primary) hypertension; E78.2 Mixed hyperlipidemia; E66.01 Morbid (severe) obesity due to excess calories; I87.2 Venous insufficiency (chronic) (peripheral); E55.9 Vitamin D deficiency, unspecified; A41.9 Sepsis, unspecified organism

== ENCOUNTER → 2021-10-11 | Outpatient (CLI) | payer MEDICARE, BC | LOC: CARDREHAB 10:48 | DX: R06.02 Shortness of breath (principal) | CPT/HCPCS: A9500 ==

== ENCOUNTER → 2021-10-14 | Outpatient (CLI) | payer MEDICARE, BC ==
[2021-10-14 10:08] LABS: CALCIUM 9.8 mg/dL (8.3-10.5)
[2021-10-14 10:09] LABS: HEMOGLOBIN 13.1 g/dL (12.5-16.0); MEAN PLATELET VOLUME 10.5 fl (7.4-10.4); RED BLOOD COUNT 4.42 M/mm3 (4.10-5.30); RED CELL DISTRIBUTION WIDTH 13.6 % (11.5-14.5)
== END ==
LOC: LAB 09:41
PROVIDERS: Internal Medicine Interventional Cardiology
DX: Z01.812 Encounter for preprocedural laboratory examination (principal); L97.811 Non-pressure chronic ulcer of other part of right lower leg limited to breakdown of skin

== ENCOUNTER → 2021-11-19 | Outpatient (CLI) | payer MEDICARE, BC | LOC: MAMMO 15:06 | DX: Z12.31 Encounter for screening mammogram for malignant neoplasm of breast (principal) ==

== ENCOUNTER → 2023-08-06 | Outpatient (REF) | payer MEDICARE, BC ==
[2023-09-24 15:35] LABS: ALBUMIN 4.3 g/dL (3.4-4.8); CALCIUM 9.7 mg/dL (8.3-10.5); TOTAL BILIRUBIN 0.7 mg/dL (0.2-1.2); TOTAL PROTEIN 7.3 g/dL (6.2-8.1)
== END ==
LOC: LAB 09:10
PROVIDERS: Family Medicine
DX: I10 Essential (primary) hypertension (principal)

== ENCOUNTER 2023-11-24 09:04 | Emergency (ER) | payer MEDICARE, BC ==
[~2023-11-24] VITALS: Ht 160 cm; Wt 111.2 kg
[2023-11-24 09:48] LABS: BASO # 0.01 K/mm3 (0.02-0.10); EOS # 0.14 K/mm3 (0.04-0.40); EOS % 2.2 % (1.0-5.0); HEMATOCRIT 33.4 % (37.0-47.0); HEMOGLOBIN 11.3 g/dL (12.5-16.0); LYMPH# 0.71 K/mm3 (1.50-4.00); MEAN CELL VOLUME 91 fl (78-100); MEAN CORPUSCULAR HEMOGLOBIN 31 pg (27-31); MEAN CORPUSCULAR HGB CONC 34 g/dL (33-37); MEAN PLATELET VOLUME 9.7 fl (7.4-10.4); MONO # 0.89 K/mm3 (0.20-0.80); NEU # 4.49 K/mm3 (1.40-6.50); PLATELET COUNT 269 K/mm3 (130-400); RED BLOOD COUNT 3.68 M/mm3 (4.10-5.30); WHITE BLOOD COUNT 6.3 K/mm3 (4.8-10.8)
[2023-11-24 09:56] LABS: ALBUMIN 3.8 g/dL (3.4-4.8)
[2023-11-24 09:57] LABS: CALCIUM 9.3 mg/dL (8.3-10.5)
[2023-11-24 10:00] LABS: TOTAL BILIRUBIN 0.7 mg/dL (0.2-1.2)
[2023-11-24] MEDS ORDERED: NS 1,000 ML IV SCH (10:45)
[2023-11-24 13:25] VITALS: BP 120/53
== END 2023-11-24 13:27 | disposition short-term general hospital (02) ==
LOC: ED 09:04
DX: N17.9 Acute kidney failure, unspecified (principal); E87.1 Hypo-osmolality and hyponatremia; E66.01 Morbid (severe) obesity due to excess calories; Z68.41 Body mass index [BMI] 40.0-44.9, adult
CPT/HCPCS: J7030

== ENCOUNTER → 2023-12-08 | Outpatient (CLI) | payer MEDICARE, BC ==
[2023-12-08 09:36] LABS: CALCIUM 9.6 mg/dL (8.3-10.5)
== END ==
LOC: LAB 09:08
DX: R60.0 Localized edema (principal)

== ENCOUNTER → 2023-12-22 | Outpatient (CLI) | payer MEDICARE, BC | LOC: LAB 09:00 | DX: R60.0 Localized edema (principal) ==

== ENCOUNTER → 2024-01-26 | Outpatient (CLI) | payer MEDICARE, BC ==
[2024-01-26 09:35] LABS: CALCIUM 9.7 mg/dL (8.3-10.5)
== END ==
LOC: LAB 09:10
DX: I10 Essential (primary) hypertension (principal)

== ENCOUNTER → 2024-02-09 | Outpatient (CLI) | payer MEDICARE, BC ==
[2024-02-09 09:18] LABS: ALBUMIN 3.7 g/dL (3.4-4.8)
[2024-02-09 09:20] LABS: CALCIUM 9.1 mg/dL (8.3-10.5)
[2024-02-09 09:21] LABS: TOTAL PROTEIN 6.5 g/dL (6.2-8.1)
[2024-02-09 09:23] LABS: TOTAL BILIRUBIN 0.4 mg/dL (0.2-1.2)
== END ==
LOC: LAB 08:43
DX: I50.30 Unspecified diastolic (congestive) heart failure (principal); E87.1 Hypo-osmolality and hyponatremia

== ENCOUNTER → 2024-05-20 | Outpatient (CLI) | payer MEDICARE, BC ==
[2024-05-20 09:37] LABS: CALCIUM 9.6 mg/dL (8.3-10.5)
== END ==
LOC: LAB 09:01
PROVIDERS: Internal Medicine Interventional Cardiology
DX: I50.30 Unspecified diastolic (congestive) heart failure (principal)

== ENCOUNTER → 2024-06-21 | Outpatient (CLI) | payer MEDICARE, BC ==
[2024-06-21 09:33] LABS: HEMATOCRIT 25.7 % (37.0-47.0); HEMOGLOBIN 8.1 g/dL (12.5-16.0); MEAN CELL VOLUME 95 fl (78-100); MEAN CORPUSCULAR HEMOGLOBIN 30 pg (27-31); MEAN CORPUSCULAR HGB CONC 32 g/dL (33-37); MEAN PLATELET VOLUME 9.4 fl (7.4-10.4); PLATELET COUNT 337 K/mm3 (130-400); RED CELL DISTRIBUTION WIDTH 15.9 % (11.5-14.5); WHITE BLOOD COUNT 8.3 K/mm3 (4.8-10.8)
[2024-06-21 09:37] LABS: ALBUMIN 3.5 g/dL (3.4-4.8)
[2024-06-21 09:39] LABS: CALCIUM 9.3 mg/dL (8.3-10.5)
[2024-06-21 09:40] LABS: TOTAL PROTEIN 7.1 g/dL (6.2-8.1)
[2024-06-21 09:42] LABS: TOTAL BILIRUBIN 0.3 mg/dL (0.2-1.2)
[2024-06-21 10:11] LABS: NEUTROPHILS 83 % (42-75)
[2024-06-21 10:12] LABS: LYMPHOCYTE 4 % (20-51); MONOCYTE 8 % (3-10)
== END ==
LOC: LAB 08:56
PROVIDERS: Nurse Practitioner
DX: Z00.00 Encounter for general adult medical examination without abnormal findings (principal); E03.4 Atrophy of thyroid (acquired); E55.9 Vitamin D deficiency, unspecified; R73.03 Prediabetes